=== PATIENT | male | born 1980 ===

== ENCOUNTER 2022-06-23 12:43 | Emergency (ER) | payer OTHER ==
[~2022-06-23] VITALS: Ht 170.2 cm; Wt 100.0 kg
[2022-06-23 12:53] VITALS: BP 119/74
[2022-06-23 16:42] LABS: EOSINOPHILS % 2.4 % (0.0-5.0); HEMATOCRIT. 48.4 % (42.0-52.0); HEMOGLOBIN. 16.4 g/dL (14.0-18.0); LYMPHOCYTES % 35.1 % (20.0-50.0); MEAN CORPUSCULAR HEMOGLOBIN 29.4 pg (28.0-32.0); MEAN PLATELET VOLUME 7.6 fl (7.4-10.4); MONOCYTES % 6.2 % (2.0-8.0); NEUTROPHILS % 55.3 % (40.0-76.0); PLATELET 277 x1000/uL (130-400); RED BLOOD CELL COUNT 5.56 mill/uL (4.7-6.1); RED CELL DISTRIBUTION WIDTH 12.4 % (11.6-14.6)
[2022-06-23 16:52] LABS: PROTHROMBIN TIME 11.2 sec (9.6-11.0)
[2022-06-23 16:54] LABS: CHLORIDE 105 mEq/L (98-107)
[2022-06-23 18:16] LABS: T4 FREE 0.9 ng/dL (0.76-1.46)
== END 2022-06-23 18:58 | disposition home or self-care (01) ==
LOC: ER 12:43
DX: F41.9 Anxiety disorder, unspecified (principal); R07.89 Other chest pain; E78.00 Pure hypercholesterolemia, unspecified
CPT/HCPCS: 36415; 71045; 80053; 83880; 84439; 84443; 84484; 85025; 93005; 99285